=== PATIENT | female | born 1970 | race African-American/Black ===

== ENCOUNTER → 2017-01-01 | Outpatient (CLI) | payer BC ==
[~2017-01-01] MED LIST: DAILTAB38 PO; FERR325C PO; FISHCAP4 PO; LEVO112T2 PO; no current meds
[2017-01-01 14:03] LABS: AUTOMATED NEUTROPHIL # 2.2 TH/MM3 (1.8-7.7); BASOPHIL % 0.4 % (0.0-2.0); EOSINOPHIL # 0.1 TH/MM3 (0-0.4); EOSINOPHIL % 1.4 % (0.0-4.0); HEMO FLAGS DIFF FINAL; LYMPH % 37.6 % (9.0-44.0); LYMPHOCYTE # 1.9 TH/MM3 (1.0-4.8); MEAN CELL VOLUME 87.4 FL (80.0-100.0); MEAN CORPUSCULAR HEMOGLOBIN 29.7 PG (27.0-34.0); MEAN CORPUSCULAR HGB CONC 33.9 % (32.0-36.0); NEUT % 43.6 % (16.0-70.0); PLATELET COUNT 232 TH/MM3 (150-450); RED BLOOD COUNT 4.57 MIL/MM3 (4.00-5.30); RED CELL DISTRIBUTION WIDTH 13.3 % (11.6-17.2)
[2017-01-01 14:21] LABS: BLOOD, URINE MOD (NEG); COMMENT (UR) CULT NOT INDICATED; CULTURE IF INDICATED CULT NOT INDICATED; GLUCOSE,URINE NEG (NEG); KETONE, URINE NEG (NEG); MUCUS URINE FEW /lpf (OCC); NITRITE,URINE NEG (NEG); PH, URINE 6.5 (5.0-8.5); SQUAMOUS EPITHELIAL CELL URINE 5 /hpf (0-5); URINE COLOR YELLOW (YELLW/STRAW)
--- NOTE | 2017-01-02 13:06 | EKG ---
Date Performed: 01/01/2017 Time Performed: 13:27:36 PTAGE: 46 years EKG: Sinus rhythm NORMAL ECG NO PREVIOUS TRACING DOCTOR: Maritza Rodríguez Interpretating Date/Time 01/02/2017 13:04:48
== END ==
LOC: CPRE 13:06
PROVIDERS: ATTEND Obstetrics & Gynecology
DX: Z01.812 Encounter for preprocedural laboratory examination (principal); Z01.810 Encounter for preprocedural cardiovascular examination; N92.0 Excessive and frequent menstruation with regular cycle; C25.9 Malignant neoplasm of pancreas, unspecified
CPT/HCPCS: 36415; 81001; 84703; 85025; 93005

== ENCOUNTER 2017-01-03 10:45 | Observation (INO) | payer BC ==
--- NOTE | 2017-01-02 20:56 | MH ---
cc: GUILLERMINA GONZALEZ DATE OF ADMISSION: 01/03/2017 ADMITTING DIAGNOSIS: Menorrhagia, dysmenorrhea, secondary to multiple uterine fibroids. HISTORY OF PRESENT ILLNESS: The patient is a 46 year-old black female, para 1-1-1-2, with increasing menstrual flow and menstrual pain over the last one year. Her last ultrasound from 12/30/2015 showed multiple fibroids, normal-appearing ovaries. Endometrial biopsy from 01/17/2016 showed hyperplasia, treated with Prometrium. She is now admitted for hysterectomy. Her last Pap smear was June of 2016 and was normal. PAST SURGICAL HISTORY: In 2007, she had multiple myomectomies. 2009, she had a primary for breech. OBSTETRICAL HISTORY Vaginal delivery in 1994, spontaneous 2006 required D&C. MEDICATIONS Vitamins. ALLERGIES None TRANSFUSIONS None. SOCIAL HISTORY She is self-employed, she is . Alcohol, tobacco and drugs are none. FAMILY HISTORY: Noncontributory. PHYSICAL EXAMINATION: Reveals a well-developed, well-nourished black female. Vital signs stable. HEENT: Normal. CHEST: Clear. HEART: Regular rate. BREASTS: Symmetrical. ABDOMEN: Benign. PELVIC: Normal external genitalia and bus. Vagina is normal. Cervix is normal. Uterus is enlarged about 12 to 14 weeks size. Adnexa nonpalpable. ASSESSMENT: As above. PLAN: She is now admitted for laparoscopy with probable LASH procedure with salpingectomy bilateral, possible JOSE LUIS, possible BSO. While in the office I explained the procedures, the risks, benefits and complications including but not limited to , infection, bleeding were explained and accepted. The patient would like to proceed. MD LAUREN Panda/LASHAY /8:35 PM /8:41 PM
[~2017-01-03] VITALS: Ht 157.5 cm; Wt 92.0 kg
[~2017-01-03 10:45] MED LIST changes: -no current meds
[2017-01-03] MEDS ORDERED: ceFAZolin INJ 1,000 MG VIAL ONE (11:51)
[2017-01-03] MEDS ORDERED: ACETAMINOPHEN 1000 MG/100 ML 100 ML IV ONE (11:51)
[2017-01-03] MEDS ORDERED: SODIUM CHLORIDE 0.9% INJ 100 ML ONE (11:52)
[2017-01-03] MEDS ORDERED: NORMOSOL R INJ 1,000 ML IV ONE (12:00)
[2017-01-03] MEDS ORDERED: PROPOFOL 200 MG/20 ML AMP IV ONE (12:00)
[2017-01-03] MEDS ORDERED: NEOSTIGMINE 3 MG/3 ML SYR IV ONE (12:00)
[2017-01-03] MEDS ORDERED: ONDANSETRON HCL 4 MG/2 ML VIAL IV PUSH ONE (12:00)
[2017-01-03] MEDS ORDERED: KETOROLAC TROMETHAMINE 60 MG/2 ML (IM) VIAL IM ONE (12:00)
[2017-01-03] MEDS ORDERED: BUPIVACAINE LIPOSOME PF 1.3% 20 ML VIAL ONE (12:30)
[2017-01-03] MEDS ORDERED: MIDAZOLAM HCL 2 MG/2 ML VIAL ONE (12:38)
[2017-01-03] MEDS ORDERED: POVIDONE IODINE 5% (ANTISEPSIS KIT) 4 APPLICATIONS EACH NARE PRN (14:30)
[2017-01-03] MEDS ORDERED: INSULIN HUMAN REGULAR 1,000 UNITS/10 ML VIAL SQ PRN (14:30)
[2017-01-03] MEDS ORDERED: METOPROLOL TARTRATE 25 MG TAB PO PRN (14:30)
[2017-01-03] MEDS ORDERED: CHLORHEXIDINE GLUCONATE 2 % 1 PACK (2 CLOTHS) TOPICAL PRN (14:30)
[2017-01-03] MEDS ORDERED: ceFAZolin 1,000 MG/NS 100 ML IV SCH ×2 (14:30)
[2017-01-03] MEDS ORDERED: LACTATED RINGER'S 1000 ML IV PRN (14:30)
[2017-01-03] MEDS ORDERED: SODIUM CHLORID 0.9% 500 ML IV PRN (14:30)
[2017-01-03] MEDS ORDERED: ACETAMINOPHEN 1000 MG/100 ML VIAL IV SCH (14:45)
[2017-01-03] MEDS: KETOROLAC TROMETHAMINE 30 MG/ML (IVP) VIAL IVP SCH ×2 (15:00→21:03)
[2017-01-03] MEDS: DOCUSATE SODIUM 100 MG CAP PO SCH (15:00)
[2017-01-03] MEDS ORDERED: diphenhydrAMINE HCL 25 MG CAP PO PRN (15:00)
[2017-01-03] MEDS ORDERED: ONDANSETRON HCL 4 MG/2 ML VIAL IV PRN (15:00)
[2017-01-03] MEDS ORDERED: SODIUM CHLORIDE 0.9% FLUSH 5 ML FLUSH FLUSH PRN (15:00)
[2017-01-03] MEDS ORDERED: PROMETHAZINE INJ 25 MG/ML VIAL IM PRN (15:00)
[2017-01-03] MEDS ORDERED: HYDROmorphone HCL PF 1 MG/ML VIAL IV PRN (15:00)
[2017-01-03] MEDS ORDERED: ZOLPIDEM TARTRATE 5 MG TAB PO PRN (15:00)
[2017-01-03] MEDS ORDERED: ONDANSETRON ODT 4 MG TAB PO PRN (15:00)
[2017-01-03] MEDS ORDERED: *ONDANSETRON 4 MG VIAL PERIprocedural Use ONLY ONE (15:12)
[2017-01-03] MEDS ORDERED: ONDANSETRON INJ 8 MG in DEXTROSE 5% IN WATER INJ 50 ML IV PUSH PRN ×2 (15:15)
[2017-01-03] MEDS: D5-1/2 NS + KCL 20 MEQ INJ 1,000 ML IV SCH ×3 (15:26→21:57)
[2017-01-03 16:00] VITALS: BP 136/87; PULSE 75; RESP 20; TEMP 97.4; O2SAT 100
[2017-01-03] MEDS ORDERED: DO NOT ADM ANY ANTICOAGULANT DRUGS PRN (16:30)
[2017-01-03 19:20] LABS: HEMATOCRIT 37.7 % (35.0-46.0); REVIEW FLAG FINAL
[2017-01-03 20:00] VITALS: BP 133/83; PULSE 78; RESP 17; TEMP 97; O2SAT 100
[2017-01-03] MEDS: ACETAMINOPHEN 1000 MG/100 ML VIAL IV SCH (21:00)
[2017-01-03] MEDS: SODIUM CHLORIDE 0.9% FLUSH 5 ML FLUSH FLUSH SCH (21:03)
[2017-01-04] VITALS: BP 147/95; PULSE 76; RESP 17; TEMP 96.2; O2SAT 99
[2017-01-04] MEDS: KETOROLAC TROMETHAMINE 30 MG/ML (IVP) VIAL IVP SCH ×2 (02:42→08:33)
[2017-01-04] MEDS: DOCUSATE SODIUM 100 MG CAP PO SCH (02:43)
[2017-01-04] MEDS: ACETAMINOPHEN 1000 MG/100 ML VIAL IV SCH (02:43)
[2017-01-04 04:00] VITALS: BP 132/92; PULSE 73; RESP 18; TEMP 96.2; O2SAT 98
[2017-01-04 05:26] VITALS: O2SAT 98
[2017-01-04 07:42] LABS: AUTOMATED NEUTROPHIL # 7.1 TH/MM3 (1.8-7.7); BASOPHIL % 0.1 % (0.0-2.0); HEMATOCRIT 34.4 % (35.0-46.0); HEMO FLAGS DIFF FINAL; LYMPH % 9.7 % (9.0-44.0); LYMPHOCYTE # 0.8 TH/MM3 (1.0-4.8); MEAN CORPUSCULAR HEMOGLOBIN 29.4 PG (27.0-34.0); MEAN CORPUSCULAR HGB CONC 33.4 % (32.0-36.0); MONO % 7.6 % (0.0-8.0); NEUT % 82.6 % (16.0-70.0); PLATELET COUNT 223 TH/MM3 (150-450); RED BLOOD COUNT 3.91 MIL/MM3 (4.00-5.30); RED CELL DISTRIBUTION WIDTH 13.7 % (11.6-17.2); WHITE BLOOD COUNT 8.6 TH/MM3 (4.0-11.0)
[2017-01-04 08:00] VITALS: BP 140/98; PULSE 65; RESP 16; TEMP 98.6; O2SAT 99
[2017-01-04 08:26] LABS: BICARBONATE 23.7 MEQ/L (21.0-32.0); POTASSIUM 3.9 MEQ/L (3.5-5.1)
[2017-01-04] MEDS: SODIUM CHLORIDE 0.9% FLUSH 5 ML FLUSH FLUSH SCH (08:33)
--- NOTE | 2017-01-04 08:35 | HHI.DCPOC ---
Discharge Care Plan Report Symptoms to Your Doctor -Temperature above 100.5 degrees -Redness, of incision or excessive or foul smelling drainage -Unusual pain or calf pain -Increased vaginal bleeding -Painful or difficulty urinating -Feelings of extreme sadness or anxiety after 2 weeks Goals to Promote Your Health * To prevent worsening of your condition and complications * To maintain your health at the optimal level Directions to Meet Your Goals Take your medications as prescribed Follow your dietary instruction Follow activity as directed Ensure plenty of rest for recovery Drink fluids for hydration Keep your appointments as scheduled Take your immunizations and boosters as scheduled If your symptoms worsen call your PCP, if no PCP go to Urgent Care Center or Emergency Room Smoking is Dangerous to Your Health. Avoid second hand smoke Call the 24-hour crisis hotline for domestic abuse at Devin Murrell MD Jan 04, 2017 08:35
--- NOTE | 2017-01-04 08:58 | MP ---
cc: GUILLERMINA GONZALEZ DATE OF SURGERY: 01/03/2017 PREOPERATIVE DIAGNOSIS Menorrhagia, dysmenorrhea with multiple fibroids. POSTOPERATIVE DIAGNOSIS Menorrhagia, dysmenorrhea with multiple fibroids. PROCEDURE Laparoscopy, LASH and bilateral salpingectomy. ANESTHESIA General ET. SURGEON Guillermina Gonzalez MD DIRECTOR ACUTE Aleisha Marcelino. ESTIMATED BLOOD LOSS About 300 ccs. FLUIDS 2 liters crystalloid. OBJECTIVE FINDINGS Following induction of adequate general endotracheal anesthesia the patient was prepped and draped supine on the operating table in the dorsal lithotomy position in the usual sterile fashion with the bladder being drained by Kamara catheterization. The abdomen was opened through a 3 cm curving infraumbilical incision directly over her umbilical hernia. The fascia was opened transversely. The peritoneum was opened sharply without incident and digital fascia was normal. The mini GelPort was placed, laparoscope was inserted. A 5 port was placed in the left lower quadrant Airseal port right lower quadrant. Uterus was about 12-14 weeks size with multiple fibroids, normal tubes, normal ovaries, normal cul-de-sacs, normal liver edge and the normal appendix. Working first on the left-side the Harmonic scalpel was used to take the left utero-ovarian pedicle, left round ligament, left broad ligament, left-side of bladder flap and the uterine vessels and the same on the right. The Harmonic scalpel was used to amputate the fundus and the cervix. A pouch inserted and exteriorized. The uterus was then hand morcellated in the pouch extracting the portions and the residual tissue with no spillage. The area of bleeding on the right side of the cervix was controlled with the Harmonic scalpel. Each tube was now extracted with the Harmonic scalpel through the GelPort. Irrigation was performed, no bleeding was evident. Blood pressure tests were done in the Trendelenburg neutral position. There was no bleeding. Ureters inspected for good peristalsis. The operative site was now coated with Evaseal. The GelPort was now removed and the peritoneum closed with running 2-0 Vicryl, the fascia with a running locking stitch of 0 Vicryl midline and tied, subcu with running 3-0 Vicryl and skin with running subcuticular 3-0 Monocryl. The scope was now used to the lower ports, inspected GelPort site is well closed, no entrapment. Pelvis was inspected and there was no bleeding. The instruments were now removed, gas was allowed to escape and the small ports closed with 3-0 Monocryl subcuticular. Dermabond was applied. All counts were correct and the patient was awakened and taken to the recovery room in good condition. MD LAUREN Panda/NIKUNJ /2:41 PM /8:31 AM [id number]
== END 2017-01-04 11:08 | disposition home or self-care (01) ==
LOC: HSDC 10:45 → HSDI 14:49 → HOCA 15:48
PROVIDERS: ADMIT Obstetrics & Gynecology; ATTEND Obstetrics & Gynecology
DX: D25.9 Leiomyoma of uterus, unspecified (principal); N92.0 Excessive and frequent menstruation with regular cycle; N94.6 Dysmenorrhea, unspecified; N83.8 Other noninflammatory disorders of ovary, fallopian tube and broad ligament
CPT/HCPCS: 00840; 58542; 64488; 80048; 85014; 85018; 85025; 88307; 96374; 96375; 96376; G0378; J0131; J0690; J1170; J1885; J2250; J2405; J2710; J3010; J3480; C9290